=== PATIENT | female | born 1985 | race Caucasian/White ===

== ENCOUNTER 2017-10-03 10:01 | Day surgery (SDC) | payer BC ==
[2017-10-01 09:59] VITALS: BMI 33.5
[~2017-10-03 10:01] MED LIST: LACTATED RINGERS 1,000 ML IV SCH
[2017-10-03 10:20] VITALS: TEMP 98.5
[2017-10-03] MEDS ORDERED: LIDOCAINE 1% 20 ML VIAL (10MG/ML) FOR IV START INTRADERMA ONE (10:30)
[2017-10-03] MEDS ORDERED: LACTATED RINGERS 1,000 ML IV ONE ×2 (10:30)
[2017-10-03] MEDS ORDERED: PROPOFOL 10 MG/ML 20 ML VIAL IV ONE (11:15)
--- NOTE | 2017-10-03 11:34 | P.PCN ---
Date of Procedure: 10/03/17 Procedure(s) Performed: Procedure: Esophagogastroduodenoscopy and biopsy. Preoperative diagnosis: Chronic reflux symptoms requiring ongoing therapy. Postoperative diagnosis: 1. Small sliding hiatal hernia with no obvious esophagitis or complicated reflux disease. 2. Mild antral gastritis. 3. Multiple biopsies obtained from the duodenum, antrum and esophagus. Preparation and sedation: Was provided by anesthesia. Brief clinical history: The patient is a 32-year-old female who is scheduled for this evaluation because of chronic reflux symptoms of more than 10 years duration requiring ongoing therapy and at times twice a day therapy. She has no alarm symptoms. This evaluation is to assess for esophagitis or complicated reflux disease or other pathology. Procedure: With the patient on her left lateral decubitus position and after informed consent and adequate sedation, I passed the Olympus-GIF 160 video upper endoscope through the cricopharyngeus down the esophagus. GE junction was around 39 cm from the incisors and there was a small sliding hiatal hernia but no obvious esophagitis or complicated reflux disease. The endoscope was then passed into the stomach which was insufflated with air and inspected in detail including the retroflex view in the cardia. There was some mottling and erythema in the antrum but no ulcers or erosions. Pyloric channel, duodenal bulb, post bulbar area and descending duodenum appeared within normal limits. I obtained biopsies from the duodenum, antrum and esophagus then the endoscope was withdrawn. The patient tolerated the procedure well. Plan: The patient was reassured. Will await biopsy results. She will follow- up with you as planned and further plans will be made based on her course and biopsy results. I will be happy to see in the office of her symptoms persist.
[2017-10-03 12:47] VITALS: RESP 18
[2017-10-03 12:49] VITALS: BP 134/91; PULSE 68
== END 2017-10-03 12:40 | disposition home or self-care (01) ==
LOC: ORWHC2ENDO 10:01
DX: K21.9 Gastro-esophageal reflux disease without esophagitis (principal); K29.50 Unspecified chronic gastritis without bleeding; K44.9 Diaphragmatic hernia without obstruction or gangrene; Z79.899 Other long term (current) drug therapy; Z88.2 Allergy status to sulfonamides
CPT/HCPCS: 81025; 88305; 43239; J2704

== ENCOUNTER → 2019-05-06 | Outpatient (CLI) | payer BC ==
--- NOTE | 2019-05-06 08:40 | US ---
EXAMINATION TYPE: US abdomen complete DATE OF EXAM: 05/06/2019 COMPARISON: NONE CLINICAL HISTORY: R10.9 Abdominal pain. Generalized abdomen pain. NPO. EXAM MEASUREMENTS: Liver Length: 17.3 cm Gallbladder Wall: 0.2 cm CBD: 0.3 cm Spleen: 11.6 cm Right Kidney: 11.0 x 4.7 x 3.6 cm Left Kidney: 10.4 x 4.8 x 5.6 cm Pancreas: wnl Liver: wnl Gallbladder: wnl Evidence for sonographic Sweeney's sign: neg CBD: wnl Spleen: wnl Right Kidney: No hydronephrosis or masses seen Left Kidney: No hydronephrosis or masses seen Upper IVC: wnl Abd Aorta: No AAA visualized The liver is homogenous. The intrahepatic portion of the IVC and proximal abdominal aorta are within normal limits. There is no evidence of cholelithiasis. Common bile duct is unremarkable. The visu alized portions of the pancreas are homogenous. The spleen is unremarkable. Kidneys are symmetric a nd free of hydronephrosis. No renal lesions are seen. IMPRESSION: Unremarkable abdominal ultrasound. No sonographic evidence of cholelithiasis nor acute ch olecystitis.
== END | disposition home or self-care (01) ==
LOC: RADUSWWP 07:29
PROVIDERS: ATTEND Family Medicine
DX: R10.9 Unspecified abdominal pain (principal)
CPT/HCPCS: 76700

== ENCOUNTER → 2019-09-21 | Outpatient (CLI) | payer BC ==
--- NOTE | 2019-09-22 04:08 | NM ---
EXAMINATION TYPE: NM hepatobiliary w EF DATE OF EXAM: 09/21/2019 COMPARISON: Ultrasound 05/06/2019 HISTORY: 34-year-old female R10.11, right upper quadrant pain TECHNIQUE: After the intravenous administration of 4.21 mCi Tc 99m Mebrofenin hepatobiliary scintigra phy is performed. Immediate images post injection. FINDINGS: There is satisfactory initial accumulation of tracer by the liver. The gallbladder is visualized wit hin 14 minutes. The small bowel activity is noted within 8 minutes. At one hour 8 ounces of oral en sure plus is given to mimic CCK and gallbladder ejection fraction is calculated at 85 %. IMPRESSION: 1. No scintigraphic evidence for acute/chronic cholecystitis or biliary dyskinesia. 2. Gallbladder ejection fraction is elevated at 85%. Findings may be seen in the setting of gallbladd er hyperkinesis.
== END | disposition home or self-care (01) ==
LOC: RADNMMAIN 15:20
PROVIDERS: ATTEND Internal Medicine Gastroenterology
DX: R93.2 Abnormal findings on diagnostic imaging of liver and biliary tract (principal)
CPT/HCPCS: 78226; A9537

== ENCOUNTER 2020-08-09 09:20 | Day surgery (SDC) | payer BC ==
[~2020-08-09 09:20] MED LIST changes: +ONDANSETRON 4 MG/2 ML VIAL IVP PRN
[2020-08-09 09:45] VITALS: RESP 16; TEMP 97.4
[2020-08-09] MEDS ORDERED: LIDOCAINE 1% (10MG/ML) FOR IV START INTRADERMA ONE (09:58)
[2020-08-09] MEDS ORDERED: PROPOFOL 10 MG/ML 20 ML VIAL IV ONE (10:38)
[2020-08-09] MEDS ORDERED: LIDOCAINE 1% INJ 10MG/ML (20 ML MDV) ONE (10:38)
--- NOTE | 2020-08-09 11:00 | P.PCN ---
Date of Procedure: 08/09/20 Description of Procedure: BRIEF HISTORY: Patient is a 35-year-old female presenting for outpatient esophagogastroduodenoscopy for evaluation of GERD with esophagitis. Patient previously seen for EGD at which time she was having symptoms of chronic reflux. She reports her reflux is improved now off the medication, however she reports frequent symptoms of dysphagia and odynophagia. PROCEDURE PERFORMED: Esophagogastroduodenoscopy with biopsy. PREOPERATIVE DIAGNOSIS: GERD with esophagitis, dysphagia, odynophagia. ESTIMATED BLOOD LOSS: Minimal. IV sedation per anesthesia. PROCEDURE: After informed consent was obtained, the patient was brought into the endoscopy unit. IV sedation was administered by Anesthesia under continuous monitoring. Initially the Olympus GIF-190 video endoscope was inserted into the mouth. Esophagus intubated without any difficulty. It was gradually advanced into the stomach and duodenum and carefully examined. The bulb and the second part of the duodenum appeared normal, with some mild scattered erythema suggestive of mild duodenitis with biopsies taken. The scope at this time was withdrawn to the stomach, adequately insufflated with air, and upon careful examination, mucosa of the antrum, body, cardia and the fundus appeared normal, except for some mild scattered erythema in the antrum and body suggestive of mild gastritis with biopsies taken. The scope was then withdrawn into the esophagus. The GE junction was located at 37 cm from the incisors. The esophagus appeared normal, with biopsies of the lower esophagus taken. There were no erosions or ulcerations seen and the patient tolerated the procedure well. IMPRESSION: 1. No esophagitis, esophageal strictures or other abnormalities of the esophagus noted. 2. Mild gastritis. 3. Mild duodenitis. 4. Biopsies of the duodenum, antrum body, lower esophagus and midesophagus and midesophagus. RECOMMENDATIONS: The findings of this examination were discussed with the patient. Okay to resume diet. Okay to resume medications. Await pathology from biopsies. Recommend a trial of daily OTC Prilosec for possible reflux related symptoms.
[2020-08-09 11:18] VITALS: BP 120/75; PULSE 83
== END 2020-08-09 11:41 | disposition home or self-care (01) ==
LOC: ORWHC2ENDO 09:20
PROVIDERS: ATTEND Internal Medicine
DX: K29.50 Unspecified chronic gastritis without bleeding (principal); K29.80 Duodenitis without bleeding; K21.9 Gastro-esophageal reflux disease without esophagitis; R13.10 Dysphagia, unspecified; F41.9 Anxiety disorder, unspecified; F32.9 Major depressive disorder, single episode, unspecified; Z98.890 Other specified postprocedural states; Z79.899 Other long term (current) drug therapy; Z88.2 Allergy status to sulfonamides
CPT/HCPCS: 81025; 88305; 43239; J2001; J2704

== ENCOUNTER → 2022-09-21 | Outpatient (CLI) | payer BC ==
--- NOTE | 2022-09-23 19:12 | CT ---
EXAMINATION TYPE: CT abdomen pelvis wo con DATE OF EXAM: 09/21/2022 COMPARISON: None INDICATION: RUQ pain DLP: 312.3 mGycm, Automated exposure control for dose reduction was used. CONTRAST: 0 mL of Isovue 300. Study performed without Oral Contrast TECHNIQUE: Axial images were obtained from above the diaphragm to the pubic rami in the axial plane a t 5 mm thick sections. Reconstructed images are reviewed on the computer in the coronal plane. FINDINGS: Limited CT sections are obtained the lung bases. The lung bases are clear. CT ABDOMEN: Liver: Normal Spleen: Normal Pancreas: Normal Adrenal glands: The adrenal glands are normal. Gallbladder: Normal Kidneys: No masses are evident. No hydronephrosis is present. No cysts are present. No renal stone s are identified. No hydroureter is evident. Aorta: Normal Inferior vena cava: Normal. CT PELVIS: Loops of bowel within the abdomen and pelvis are normal. The studies lateral contrast limiting ed wel evaluation. Appendix: Normal as visualized Urinary bladder: Decompressed and cannot be evaluated. Genitourinary structures: Uterus is somewhat bulky. There is a low density collection anterior to the uterus measuring 7.6 x 4.9 cm. Internal masslike areas present. There is very low density compatible with fat within this structure. Some calcification may be within the wall. Dermoid should be conside red. Osseous structures: No suspicious lytic or sclerotic lesions. There is some sclerotic change along th e left sacroiliac joint. Which may be degenerative in nature. IMPRESSIONS: 1. Suspected 7 x 5 cm dermoid anterior to the uterus low within the pelvis.
== END | disposition home or self-care (01) ==
LOC: RADCTMAIN 11:28
PROVIDERS: ATTEND Family Medicine
DX: R10.32 Left lower quadrant pain (principal); R10.11 Right upper quadrant pain
CPT/HCPCS: 74176

== ENCOUNTER 2022-12-11 08:41 | Day surgery (SDC) | payer BC ==
--- NOTE | 2022-12-06 15:49 | P.HPIHPCON ---
History of Present Illness H&P Date: 12/06/22 Chief Complaint: Right dermoid cyst Ms. Kahn is a 37 year old presenting for surgical management of left ovarian dermoid cyst measuring 7.5 x 6.8 x 5.7 centimeters on ultrasound October 31, 2022. The mass was first noted on 09/21/[address] Lux via abdominal CT which was ordered after a 2-3 week episode of RUQ pain that the patient thought might be cholecystitis. Menses occur every 28 days, last 4-5 days, and flow is medium. There is no significant dysmenorrhea. Consent for Procedure: I have explained the operation/procedure to the patient, including the risks, benefits, side effects, alternative therapies (including not receiving the proposed treatment or service), the likelihood of the patient achieving his/her goals, and potential recuperation problems for the procedure/sedation/analgesia, as well as any blood products, if indicated. I also explained to the patient the risks, benefits and side effects of the alternatives, as well as the risks related to not receiving the proposed procedure, care, treatment, or services. 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- History of Any Multi-Drug Resistant Organisms: None Reported Past Surgical History: Orthopedic Surgery Additional Past Surgical History / Comment(s): ORIF left ankle(pin), PILONIDAL cyst removed, EGD Past Anesthesia/Blood Transfusion Reactions: No Reported Reaction Smoking Status: Never smoker - Past Family History Mother Family Medical History: No Reported History Medications and Allergies Home Medications Medication Instructions Recorded Confirmed Type Vilazodone HCl [Viibryd] 20 mg PO QAM 08/08/20 12/06/22 History Cariprazine HCl [Vraylar] 3 mg PO DAILY 12/06/22 12/06/22 History Allergies Allergy/AdvReac Type Severity Reaction Status Date / Time Sulfa (Sulfonamide Allergy joints Verified 12/06/22 13:48 Antibiotics) swelling and achy Surgical - Exam Focused physical exam is performed. This is a healthy-appearing female in no apparent distress. Breathing is non-labored. Abdomen is soft and non-tender. Extremities are non-tender and non-edematous. Assessment and Plan Assessment: 37 year old with 7.5cm left dermoid cyst presenting for Laparoscopic Left Ovarian Cystectomy, Possible Left Salpingo-Ophorectomy. Plan: Risks, benefits, and alternatives to surgery are discussed with the patient incl uding risk of bleeding, infection, laparotomy, unilateral oophorectomy, damage to surrounding structures including bladder/bowels/ureters, and post-operative VTE. The patient understands these risks and desires to proceed with surgery as planned. Time with Patient: Less than 30
[2022-12-06 16:08] VITALS: BMI 25.7
[~2022-12-11 08:41] MED LIST changes: +DEXAMETHASONE SOD PHOSPHATE 4 MG/ML 1 ML VIAL IV ONE; +HYDROmorphone 0.5 MG/0.5 ML SYRINGE IVP PRN; +MIDAZOLAM 2 MG/2 ML VIAL IV PRN; +ONDANSETRON 4 MG/2 ML VIAL IVP ONE; -ONDANSETRON 4 MG/2 ML VIAL IVP PRN; +SCOPOLAMINE 1 MG/72 HR PATCH TRANSDERM ONE
[2022-12-11] MEDS ORDERED: KETOROLAC 30 MG/ML 1 ML VIAL ONE (10:33)
[2022-12-11] MEDS ORDERED: HYDROmorphone (PF) 1 MG/ML ONE (10:33)
[2022-12-11] MEDS ORDERED: ACETAMINOPHEN IV (For NPO) 1,000 MG/100 ML VIAL ONE (10:33)
[2022-12-11] MEDS ORDERED: fentaNYL (PF) 50 MCG/ML 2 ML AMP ONE (10:33)
[2022-12-11] MEDS ORDERED: NEOSTIGMINE 1 MG/ML 10 ML VIAL ONE (10:33)
[2022-12-11] MEDS ORDERED: MIDAZOLAM 2 MG/2 ML VIAL ONE (10:33)
[2022-12-11] MEDS ORDERED: PROPOFOL 10 MG/ML 20 ML VIAL IV ONE (10:33)
[2022-12-11] MEDS ORDERED: GLYCOPYRROLATE 0.2 MG/ML 2 ML VIAL ONE (10:33)
[2022-12-11] MEDS ORDERED: ROCURONIUM 10 MG/ML (5 ML VIAL) IV ONE (10:33)
[2022-12-11] MEDS ORDERED: LIDOCAINE 2% INJ 20 MG/ML (2 ML VIAL) ONE (10:33)
[2022-12-11] MEDS ORDERED: SUCCINYLCHOLINE CHLORIDE 200 MG/10 ML VIAL IV ONE (10:33)
[2022-12-11] MEDS ORDERED: BUPIVACAINE (PF) 0.25% 30 ML VIAL SQ ONE ×2 (11:07)
--- NOTE | 2022-12-11 11:49 | P.OP ---
Date of Procedure: 12/11/22 Preoperative Diagnosis: 1. Left Dermoid Cyst Postoperative Diagnosis: Same Procedure(s) Performed: Laparoscopic Left Salpingoophorectomy Implants: None Anesthesia: DOMINICK Surgeon: Sobeida Gimenez Estimated Blood Loss (ml): 5 IV fluids (ml): 600 Urine output (ml): 50 (clear) Pathology: other (left ovary and fallopian tube) Condition: stable Disposition: same day Indications for Procedure: 37 year old with 7.5cm left dermoid cyst presenting for Laparoscopic Left Ovarian Cystectomy, Possible Left Salpingo-Ophorectomy. Risks, benefits, and alternatives to surgery are discussed with the patient including risk of bleeding, infection, laparotomy, unilateral oophorectomy, damage to surrounding structures including bladder/bowels/ureters, and post-operative VTE. The patient understands these risks and desires to proceed with surgery as planned. Operative Findings: Large left ovarian cyst encompassing nearly the entire left ovary. Otherwise, grossly normal pelvic anatomy incuding bilateral fallopian tubes, uterus, and right ovary. Normal-appearing appendix. Description of Procedure: Patient was taken to the OR with IV fluid running and pneumatic compression stockings on both legs. General anesthesia was obtained without difficulty. The patient was placed in the dorsal lithotomy position with Gary-type stirrups with knees bent at 30 degree angles. Examination under anesthesia revealed a normal-sized, anteverted uterus. The patient as prepared and draped. The bladder was emptied. A speculum was placed into the vagina. The anterior lip of the cervix was grasped with a single-toothed tenaculum. A uterine manipulator was introduced. A vertical skin incision was made at the umbilical fold. The periumbilical skin was manually elevated. The Veress needle was introduced into the peritoneal cavity at a straight angle without difficulty. A saline drop test was performed to validate intraperitoneal placement. The pneumoperitoneum was established with CO2 gas to a pressure of 15mmHg. A 5mm trocar was inserted into the abdomen under direct laparoscopic visualization. Intraabdominal survey revealed lack of any visceral or vascular injury. The pelvic and abdominal anatomy was noted as above. Two additional laparoscopic assist ports were placed, a 5mm in the right lower quadrant and a 10mm in the left lower quadrant. A Romina Grasper was used to pickling tank operator the fimbriated end of the left fallopian tube. The LigaSure device was used to seal and ligate the fallopian tube sequentially to the level of the uterine cornua. The left infundibulopelvic ligament was cauterized and cut. The left uteroovarian ligament was then cauterized and cut. A 10mm EndoCatch bag was used to remove the left fallopian tube and ovary. The fascia and skin of the left lower quadrant site were extended to accomodate the specimen. The fascia in the left lower quadrant incision was closed in a running fashion with 0-Vicryl. The subcutaneous tissue was then closed with 2-0 Vicryl. All skin incisions were closed with 4-0 Monocryl and skin glue. Excellent hemostasis was noted at the end of the case. The patient tolerated the procedure well. All instruments were removed from the abdomen and vagina, and all counts were correct times two. The patient was taken to the recovery room in stable condition.
[2022-12-11] MEDS ORDERED: LACTATED RINGERS 1,000 ML IV ONE (11:54)
[2022-12-11 12:06] VITALS: TEMP 97
[2022-12-11 12:46] VITALS: RESP 16
[2022-12-11 13:22] VITALS: BP 107/61; PULSE 61
== END 2022-12-11 13:28 | disposition home or self-care (01) ==
LOC: OR 08:41
PROVIDERS: ATTEND Obstetrics & Gynecology
DX: D27.1 Benign neoplasm of left ovary (principal); K21.9 Gastro-esophageal reflux disease without esophagitis; Z98.890 Other specified postprocedural states; Z88.2 Allergy status to sulfonamides; Z79.899 Other long term (current) drug therapy
CPT/HCPCS: 81025; 58661; J2250; J0330; J2710; J0690; J3010; J1885; J1170; J0131; J2704; J2001; J0665; 88307

== ENCOUNTER → 2023-12-25 | Outpatient (CLI) | payer BC ==
--- NOTE | 2023-12-26 13:50 | MM ---
Reason for Exam: Screening (asymptomatic). Baseline mammogram. Patient History: Menarche at age 9. First Full-Term at age 20. Right ovary removed at age 37. Last menstrual period: 12/22/2023 Risk Values: Xiomara 5 year model risk: 0.5%. NCI Lifetime model risk: 9.9%. Prior Study Comparison: Patient's first Mammogram. Tissue Density: There are scattered areas of fibroglandular density. Findings: Analyzed By CAD. Right breast: asymmetry cc view middle depth 6.6 cm from nipple and slightly lateral Left breast: There is no suspicious group of microcalcifications or new suspicious mass. Overall Assessment: Incomplete: need additional imaging evaluation, BI-RAD 0 Management: Screening Mammogram of the right breast. Diagnostic Breast Ultrasound of the right breast. Ultrasound if finding persists. [facility] will attempt to contact patient to return for supplemental views and ultrasound if indicated. Patient should continue monthly self-breast exams. A clinical breast exam by your physician is recommended on an annual basis. This exam should not preclude additional follow-up of suspicious palpable abnormalities. Note on Xiomara scores and lifetime risk: 1. A Xiomara score greater than 3% is considered moderate risk. If this is the case, consider specialist referral to assess eligibility for a risk reducing agent. 2. If overall lifetime risk for the development of breast cancer is 20% or higher, the patient may qualify for future screening with alternating mammogram and breast MRI. [facility], , 12/26/2023 1:47 PM. Electronically signed and approved by: Geronimo Welilngton DO
== END | disposition home or self-care (01) ==
LOC: RADMAMWWP 15:56
PROVIDERS: ATTEND Family Medicine
DX: Z12.31 Encounter for screening mammogram for malignant neoplasm of breast
CPT/HCPCS: 77063; 77067

== ENCOUNTER → 2024-01-10 | Outpatient (CLI) | payer BC ==
--- NOTE | 2024-01-10 08:59 | MM ---
Reason for Exam: Additional evaluation requested from abnormal screening. Last screening mammogram was performed less than 1 month ago. Patient History: Menarche at age 9. First Full-Term at age 20. Right ovary removed at age 37. Risk Values: Xiomara 5 year model risk: 0.5%. NCI Lifetime model risk: 9.9%. Tissue Density: Right: There are scattered areas of fibroglandular density. Findings: Analyzed By CAD. Area of concern/asymmetry compresses out on spot compression imaging. No suspicious masses, calcifications or distortions. Overall Assessment: Benign, BI-RAD 2 Management: Screening Mammogram of both breasts in 1 year. Results were given to the patient verbally at the time of exam. Patient should continue monthly self-breast exams. A clinical breast exam by your physician is recommended on an annual basis. This exam should not preclude additional follow-up of suspicious palpable abnormalities. Note on Xiomara scores and lifetime risk: 1. A Xiomara score greater than 3% is considered moderate risk. If this is the case, consider specialist referral to assess eligibility for a risk reducing agent. 2. If overall lifetime risk for the development of breast cancer is 20% or higher, the patient may qualify for future screening with alternating mammogram and breast MRI. [facility], , 01/10/2024 8:55 AM. Electronically signed and approved by: Geronimo Wellington DO
== END ==
LOC: RADMAMWWP 08:29
PROVIDERS: ATTEND Family Medicine
CPT/HCPCS: 77061; 77065